=== PATIENT | male | born 1960 | race Caucasian/White ===

== ENCOUNTER 2018-04-28 20:17 | Emergency (ER) | payer MEDICAID ==
[~2018-04-28] VITALS: Ht 165.1 cm; Wt 103.0 kg
[2018-04-28 20:27] VITALS: BP 125/78
--- NOTE | 2018-04-28 20:35 | NUR ---
FIRST CONTACT WITH PT. PT BROUGHT BY [employer]. PT HAS SI. DENIES HI. PT'S AOX4. RESPS EVEN AND UNLABORED. BELONGINGS PUT INTO 1 BLACK BAG AND PUT INTO LOCKER. ROOM SECURE.
[2018-04-28 21:07] LABS: BASOPHILS # (AUTO) 0.03 x10^3/uL (0-0.1); BASOPHILS % (AUTO) 0 % (0-1); EOSINOPHILS # (AUTO) 0.43 x10^3/uL (0-0.4); EOSINOPHILS % (AUTO) 4 % (1-7); LYMPHOCYTES # (AUTO) 1.33 x10^3/uL (1-3.4); LYMPHOCYTES % (AUTO) 14 % (22-44); MD NO; MEAN CORPUSCULAR HEMOGLOBIN 31.7 pg (27.5-34.5); MEAN CORPUSCULAR HGB CONC 33.8 g/dL (33.2-36.2); MEAN CORPUSCULAR VOLUME 93.8 fL (81-97); MEAN PLATELET VOLUME 8.6 fL (7.4-10.4); MONOCYTES # (AUTO) 0.96 x10^3/uL (0.2-0.8); MONOCYTES % (AUTO) 10 % (2-9); NEUTROPHILS # (AUTO) 6.93 x10^3/uL (1.8-6.8); NEUTROPHILS % (AUTO) 72 % (42-75); PLATELET COUNT 296 x10^3/uL (130-400); RED BLOOD COUNT 4.92 x10^6/uL (4.38-5.82); RED CELL DISTRIBUTION WIDTH 14.4 % (9.4-14.8)
--- NOTE | 2018-04-28 21:18 | NUR ---
ekg done by this rn.
[2018-04-28 21:19] LABS: ALANINE AMINOTRANSFERASE 26 U/L (12-78); ALBUMIN 3.2 g/dL (3.4-5.0); ANION GAP 3 mmol/L (5-15); CALCIUM 8.5 mg/dL (8.5-10.1); CHLORIDE 112 mmol/L (98-107); CREATININE 0.66 mg/dL (0.7-1.3); INTERNATIONAL NORMALIZED RATIO 0.97 (0.93-1.1); PROTHROMBIN TIME 10.3 Seconds (9.6-11.5)
[2018-04-28 21:21] LABS: ALKALINE PHOSPHATASE 83 U/L (45-117); BILIRUBIN,TOTAL 0.4 mg/dL (0.2-1.0); TOTAL PROTEIN 7.2 g/dL (6.4-8.2)
[2018-04-28 21:32] LABS: SALICYLATE LEVEL 3.6 mg/dL (2.8-20.0)
[2018-04-28 21:35] LABS: ACETAMINOPHEN < 2 mcg/mL (10-30)
--- NOTE | 2018-04-28 21:37 | NUR ---
PT RESTING IN GURNEY. ROOM REMAINS SECURE. PT'S AOX4. RESPS EVEN AND UNLABORED. PT DENIES ANY NEEDS AND CONCERNS AT THIS TIME.
--- NOTE | 2018-04-28 22:29 | NUR ---
REPORT GIVEN TO HUMPHREY CURIEL.
--- NOTE | 2018-04-28 22:40 | NUR ---
UA COLLECTED AND TO LAB
[2018-04-28 23:15] LABS: AMPHETAMINE SCREEN, URINE Negative (Negative); BARBITURATE SCREEN, URINE Negative (Negative); BENZODIAZEPINE SCREEN, URINE Negative (Negative); CANNABINOID SCREEN, URINE Negative (Negative); COCAINE SCREEN, URINE Negative (Negative); METHADONE SCREEN, URINE Negative (Negative); OPIATE SCREEN, URINE Negative (Negative)
--- NOTE | 2018-04-28 23:15 | NUR ---
ATTEMPTED TO ASK PT QUESTIONS ABOUT SI, PT REFUSED TO ANSWER YES OR NO IF HE WAS SI
--- NOTE | 2018-04-28 23:37 | NUR ---
TELEPSYCH INITIATED. 25315 BOT PLACED AT BS.
--- NOTE | 2018-04-29 | NUR ---
TELEPSYCH IN PROGRESS, PT NOT ANSWERING QUESTIONS
--- NOTE | 2018-04-29 00:48 | NUR ---
PT AGITATED THAT HE IS GETTING DISCHARGED, STATING "I DON'T HAVE ANYWHERE TO GO". PT WAS NOT COOPERATIVE WITH TELEPSYCH CONSULT. THIS RN HAD TO GO IN AND ENCOURAGE THE PT TO SPEAK WITH THE DOCTOR. PT WAS PROVIDED WITH LARGE BAGS OF BELONGINGS, PT UPSET STATING "THIS PLACE IS A JOKE, I JUST TALK TO A DOCTOR ON A SCREEN. I WANT TO TALK TO SOMEONE ELSE".
--- NOTE | 2018-04-29 01:29 | NUR ---
TASK RN: AFTER MUCH ENCOURAGEMENT, PT AMBULATED STEADILY TO DC WITH RN USING OWN WALKER. TAXI VOUCHER FOR SAFE TRANSPORT TO ADDRESS PROVIDED.
== END 2018-04-29 01:31 | disposition home or self-care (01) ==
LOC: ED 23:26
DX: F32.9 Major depressive disorder, single episode, unspecified (principal); R60.0 Localized edema; G89.29 Other chronic pain; Z72.9 Problem related to lifestyle, unspecified; M19.90 Unspecified osteoarthritis, unspecified site
CPT/HCPCS: 36415; 80053; 80307; 80329; 85025; 85610; 85730; 93005; 93970; 99284; G0480

== ENCOUNTER 2019-09-13 00:46 | Emergency (ER) | payer MEDICAID ==
[~2019-09-13] VITALS: Ht 180.3 cm; Wt 93.0 kg
[2019-09-13] MEDS ORDERED: ONDANSETRON 2MG/ML, 2ML ONE (01:12)
[2019-09-13] MEDS ORDERED: MORPHINE SULFATE 4 MG/ML, 1ML ONE ×2 (01:12→02:43)
[2019-09-13] MEDS: MORPHINE SULFATE 4 MG/ML, 1ML IVPush PRN ×2 (01:15→02:45)
[2019-09-13 01:22] LABS: BASOPHILS # (AUTO) 0.04 x10^3/uL (0-0.1); BASOPHILS % (AUTO) 0 % (0-1); EOSINOPHILS # (AUTO) 0.39 x10^3/uL (0-0.4); EOSINOPHILS % (AUTO) 3 % (1-7); LYMPHOCYTES # (AUTO) 1.57 x10^3/uL (1-3.4); LYMPHOCYTES % (AUTO) 11 % (22-44); MD NO; MEAN CORPUSCULAR HEMOGLOBIN 30.8 pg (27.5-34.5); MEAN CORPUSCULAR HGB CONC 33.4 g/dL (33.2-36.2); MEAN CORPUSCULAR VOLUME 92.4 fL (81-97); MEAN PLATELET VOLUME 8.7 fL (7.4-10.4); MONOCYTES # (AUTO) 1.24 x10^3/uL (0.2-0.8); MONOCYTES % (AUTO) 8 % (2-9); NEUTROPHILS # (AUTO) 11.44 x10^3/uL (1.8-6.8); NEUTROPHILS % (AUTO) 78 % (42-75); PLATELET COUNT 291 x10^3/uL (130-400); RED BLOOD COUNT 4.72 x10^6/uL (4.38-5.82); RED CELL DISTRIBUTION WIDTH 14.3 % (9.4-14.8)
[2019-09-13] MEDS ORDERED: ONDANSETRON 2MG/ML, 2ML IVPush ONE (01:30)
[2019-09-13] MEDS ORDERED: SODIUM CHLORIDE 0.9% 1,000ML IVBOLUS ONE (01:30)
[2019-09-13] MEDS ORDERED: SODIUM CHLORIDE FLUSH 10ML SYR IVF ONE (01:30)
[2019-09-13 01:35] LABS: ALANINE AMINOTRANSFERASE 40 U/L (12-78); ALBUMIN 3.8 g/dL (3.4-5.0); ANION GAP 6 mmol/L (5-15); CHLORIDE 114 mmol/L (98-107); CREATININE 1.27 mg/dL (0.7-1.3)
[2019-09-13 01:37] LABS: ALKALINE PHOSPHATASE 114 U/L (45-117); BILIRUBIN,TOTAL 0.5 mg/dL (0.2-1.0); TOTAL PROTEIN 8.1 g/dL (6.4-8.2)
--- NOTE | 2019-09-13 01:52 | NUR ---
THIS PT WAS BIB [facility] FOR ABD PAIN, LOCATED SUPRAPUBICALLY. PT HAS INDWELLING URINARY CATHETER. PT IS A POOR HISTORIAN, PT STATES CATHETER WAS PLACED 1 YEAR AGO, WHILE HE WAS IN THE HOSPITAL BUT PT WILL NOT SPECIFY. STATES HE'S A PT AT [facility] BUT IS UNSURE WHO IS MD IS. PT SAID HE WAS SEEN BY [facility] A COUPLE DAYS AGO WHEN HIS PAIN STARTED, AND RECEIVED ABX OF WHICH HE TOOK ONE TODAY. PT STATES HIS SANTOS WAS NOT CHANGED THERE, BUT THAT IT WAS CHANGED AT [facility]OX 8 DAYS AGO.
[2019-09-13] MEDS ORDERED: LIDOCAINE GEL 2%, 5ML TP ONE (02:30)
[2019-09-13] MEDS ORDERED: MORPHINE SULFATE 4 MG/ML, 1ML IVPush PRN (02:30)
--- NOTE | 2019-09-13 03:09 | NUR ---
PT SITTING IN BED, IN POSITION OF COMFORT. PT STATES "WHATEVER" IN RESPONSE TO THIS RN UPDATING HIM ON POC.
--- NOTE | 2019-09-13 03:24 | NUR ---
ALL NEEDS MET AT THIS TIME. PT DENIES WANTING BELONGINGS MOVED CLOSER, PT EDUCATED TO USE CALL LIGHT, CALL LIGHT IN REACH. PT GIVEN WATER AT REQUEST AND OKAY OF ERP.
[2019-09-13 03:39] LABS: MICROSCOPIC INDICATED
--- NOTE | 2019-09-13 03:51 | NUR ---
ERP BACK TO BEDSIDE TO DISCUSS POC.
[2019-09-13 04:07] VITALS: BP 108/62
--- NOTE | 2019-09-13 04:21 | NUR ---
PT ABLE TO GET SELF DRESSED FOR D/C. PT GIVEN SANTOS LEG BAG.
== END 2019-09-13 04:28 | disposition home or self-care (01) ==
LOC: ED 04:17
DX: N39.0 Urinary tract infection, site not specified (principal); R31.9 Hematuria, unspecified; R10.30 Lower abdominal pain, unspecified
CPT/HCPCS: 36415; 51702; 80053; 81001; 85025; 87077; 87086; 96374; 96375; 96376; 99284; J2270; J2405; J7030

== ENCOUNTER 2019-09-30 11:37 | Emergency (ER) | payer MEDICAID ==
[~2019-09-30] VITALS: Ht 172.7 cm; Wt 90.0 kg
[2019-09-30] MEDS ORDERED: PHENAZOPYRIDINE 200 MG TABLET PO ONE (12:00)
[2019-09-30] MEDS ORDERED: PHENAZOPYRIDINE 200 MG TABLET ONE (12:09)
[2019-09-30] MEDS ORDERED: HYDROmorphone 1 MG/ML, 1ML INJ ONE (12:11)
--- NOTE | 2019-09-30 12:17 | NUR ---
C/O pain. Patient very anxious. MD aware. Patient medicated per order.
[2019-09-30] MEDS ORDERED: HYDROmorphone 1 MG/ML, 1ML INJ IM ONE (12:30)
[2019-09-30 12:45] LABS: BASOPHILS # (AUTO) 0.03 x10^3/uL (0-0.1); BASOPHILS % (AUTO) 0 % (0-1); EOSINOPHILS # (AUTO) 0.18 x10^3/uL (0-0.4); EOSINOPHILS % (AUTO) 1 % (1-7); LYMPHOCYTES # (AUTO) 1.04 x10^3/uL (1-3.4); LYMPHOCYTES % (AUTO) 7 % (22-44); MD NO; MEAN CORPUSCULAR HEMOGLOBIN 31.1 pg (27.5-34.5); MEAN CORPUSCULAR HGB CONC 33.3 g/dL (33.2-36.2); MEAN CORPUSCULAR VOLUME 93.3 fL (81-97); MEAN PLATELET VOLUME 8.9 fL (7.4-10.4); MONOCYTES # (AUTO) 0.78 x10^3/uL (0.2-0.8); MONOCYTES % (AUTO) 6 % (2-9); NEUTROPHILS # (AUTO) 12.09 x10^3/uL (1.8-6.8); NEUTROPHILS % (AUTO) 86 % (42-75); PLATELET COUNT 285 x10^3/uL (130-400); RED BLOOD COUNT 4.81 x10^6/uL (4.38-5.82); RED CELL DISTRIBUTION WIDTH 14.3 % (9.4-14.8)
[2019-09-30 12:50] LABS: ALBUMIN 3.8 g/dL (3.4-5.0); ANION GAP 6 mmol/L (5-15); CALCIUM 9.1 mg/dL (8.5-10.1); CHLORIDE 109 mmol/L (98-107); CREATININE 0.83 mg/dL (0.7-1.3)
[2019-09-30 13:01] LABS: MICROSCOPIC AUTO
--- NOTE | 2019-09-30 13:21 | NUR ---
Reports decreased pain. No needs.
--- NOTE | 2019-09-30 14:34 | NUR ---
Patient/Caregiver given discharge instructions and they have confirmed that they understand the instructions. Patient ambulatory with steady gait.
[2019-09-30 14:35] VITALS: BP 129/71
== END 2019-09-30 14:35 | disposition home or self-care (01) ==
LOC: ED 12:29
DX: R10.9 Unspecified abdominal pain (principal); R33.9 Retention of urine, unspecified; M19.90 Unspecified osteoarthritis, unspecified site; Z87.891 Personal history of nicotine dependence
CPT/HCPCS: 36415; 51702; 80048; 81001; 82040; 85025; 87086; 96372; 99284; J1170

== ENCOUNTER 2019-10-02 06:04 | Emergency (ER) | payer MEDICAID ==
[~2019-10-02] VITALS: Ht 172.7 cm; Wt 92.0 kg
[2019-10-02 06:07] VITALS: BP 119/64
--- NOTE | 2019-10-02 06:30 | NUR ---
RN CHANGED SANTOS FROM A 16FR TO A 20FR, PATIENT TOLERATED IT WELL, NO DRAINAGE AROUND THE SANTOS AT THIS TIME, WILL CONTINUE TO MONITOR
--- NOTE | 2019-10-02 07:07 | NUR ---
PATIENT TOLERATED Alex SANTOS/Jorge L PAPERWORK GIVEN TO PATIENT WITH VERBAL UNDERSTANDING
== END 2019-10-02 08:15 | disposition home or self-care (01) ==
LOC: ED 06:46
DX: T83.038A Leakage of other urinary catheter, initial encounter (principal); R33.9 Retention of urine, unspecified; F17.290 Nicotine dependence, other tobacco product, uncomplicated; Y84.6 Urinary catheterization as the cause of abnormal reaction of the patient, or of later complication, without mention of misadventure at the time of the procedure
CPT/HCPCS: 99283

== ENCOUNTER 2019-10-17 09:42 | Emergency (ER) | payer MEDICAID ==
[~2019-10-17] VITALS: Ht 172.7 cm; Wt 94.0 kg
[2019-10-17 10:22] LABS: BASOPHILS # (AUTO) 0.03 x10^3/uL (0-0.1); BASOPHILS % (AUTO) 0 % (0-1); EOSINOPHILS # (AUTO) 0.33 x10^3/uL (0-0.4); EOSINOPHILS % (AUTO) 5 % (1-7); LYMPHOCYTES # (AUTO) 1.61 x10^3/uL (1-3.4); LYMPHOCYTES % (AUTO) 22 % (22-44); MD NO; MEAN CORPUSCULAR HEMOGLOBIN 30.4 pg (27.5-34.5); MEAN CORPUSCULAR HGB CONC 32.6 g/dL (33.2-36.2); MEAN CORPUSCULAR VOLUME 93.3 fL (81-97); MEAN PLATELET VOLUME 8.3 fL (7.4-10.4); MONOCYTES % (AUTO) 10 % (2-9); NEUTROPHILS # (AUTO) 4.55 x10^3/uL (1.8-6.8); NEUTROPHILS % (AUTO) 63 % (42-75); PLATELET COUNT 277 x10^3/uL (130-400); RED BLOOD COUNT 4.78 x10^6/uL (4.38-5.82); RED CELL DISTRIBUTION WIDTH 14.1 % (9.4-14.8)
[2019-10-17 10:29] LABS: MICROSCOPIC INDICATED
--- NOTE | 2019-10-17 10:30 | NUR ---
PT BIB EMS FOR BLADDER PAIN. PT HAS SANTOS, INSERTED ON 10/01. CO DARK URINE. SEES UROLOGIST. DENIES CP, COUGH, SOB. CO OF SANTOS LEAKING
[2019-10-17 10:42] LABS: ALANINE AMINOTRANSFERASE 17 U/L (12-78); ALBUMIN 3.7 g/dL (3.4-5.0); BILIRUBIN, DIRECT 0.2 mg/dL (0.1-0.2); CALCIUM 9.1 mg/dL (8.5-10.1); CHLORIDE 112 mmol/L (98-107); CREATININE 0.76 mg/dL (0.7-1.3)
[2019-10-17 10:47] LABS: ALKALINE PHOSPHATASE 91 U/L (45-117); BILIRUBIN,INDIRECT 0.6 mg/dL (0.0-2.0); BILIRUBIN,TOTAL 0.8 mg/dL (0.2-1.0); TOTAL PROTEIN 7.4 g/dL (6.4-8.2)
[2019-10-17 10:48] LABS: ANION GAP 5 mmol/L (5-15)
[2019-10-17 10:57] VITALS: BP 111/71
--- NOTE | 2019-10-17 10:57 | NUR ---
TASK RN: PT RESTING ON GURNEY, DENIES PAIN. VSS. FALL PRECAUTIONS IN PLACE, PLACED CALL LIGHT WITHIN REACH.
--- NOTE | 2019-10-17 11:39 | NUR ---
pt co guillen leaking. Md willingham ok to change out guillen.
--- NOTE | 2019-10-17 12:05 | NUR ---
SANTOS PLACED WITHOUT DIFFICULTY.
== END 2019-10-17 12:08 | disposition home or self-care (01) ==
LOC: MERGE 09:42 → ED 10:36
DX: N30.01 Acute cystitis with hematuria (principal); F17.290 Nicotine dependence, other tobacco product, uncomplicated
CPT/HCPCS: 36415; 80048; 80076; 81001; 82040; 85025; 87086; 99283

== ENCOUNTER 2019-11-05 23:32 | Emergency (ER) | payer MEDICAID ==
[~2019-11-05] VITALS: Ht 170.2 cm; Wt 91.0 kg
--- NOTE | 2019-11-05 23:47 | NUR ---
SANTOS LAST PLACED HERE 10/17/19
[2019-11-06] MEDS ORDERED: IBUPROFEN 600 MG TABLET ONE (01:27)
[2019-11-06] MEDS ORDERED: ONDANSETRON ODT 4 MG ONE (01:27)
[2019-11-06] MEDS ORDERED: HYDROcodone/APAP 5/325 TABLET ONE (01:28)
[2019-11-06] MEDS ORDERED: ONDANSETRON ODT 4 MG PO ONE (01:30)
[2019-11-06] MEDS ORDERED: HYDROcodone/APAP 5/325 TABLET PO ONE (01:30)
[2019-11-06] MEDS ORDERED: IBUPROFEN 600 MG TABLET PO ONE (01:30)
[2019-11-06 01:49] LABS: BASOPHILS # (AUTO) 0.03 x10^3/uL (0-0.1); BASOPHILS % (AUTO) 0 % (0-1); EOSINOPHILS # (AUTO) 0.05 x10^3/uL (0-0.4); EOSINOPHILS % (AUTO) 0 % (1-7); LYMPHOCYTES # (AUTO) 1.56 x10^3/uL (1-3.4); LYMPHOCYTES % (AUTO) 11 % (22-44); MD NO; MEAN CORPUSCULAR HGB CONC 33.3 g/dL (33.2-36.2); MONOCYTES # (AUTO) 0.91 x10^3/uL (0.2-0.8); MONOCYTES % (AUTO) 6 % (2-9); NEUTROPHILS # (AUTO) 12.17 x10^3/uL (1.8-6.8); NEUTROPHILS % (AUTO) 83 % (42-75); PLATELET COUNT 266 x10^3/uL (130-400); RED BLOOD COUNT 4.84 x10^6/uL (4.38-5.82); RED CELL DISTRIBUTION WIDTH 13.8 % (9.4-14.8)
[2019-11-06 01:56] LABS: ALBUMIN 3.9 g/dL (3.4-5.0); ANION GAP 2 mmol/L (5-15); CALCIUM 9.2 mg/dL (8.5-10.1); CHLORIDE 112 mmol/L (98-107); CREATININE 0.97 mg/dL (0.7-1.3)
--- NOTE | 2019-11-06 02:12 | NUR ---
LATE ENTRY DUE TO PATIENT CARE: THIS IS A 59 YO MALE COMING IN FOR BILATERAL PUBIC PAIN WITH NAUSEA, PATIENT APPEARS IN DISTRESS FROM PAIN, HAS SANTOS IN PLACE THAT WAS PLACED HERE 10/17/2019. CLOUDY, FOUL SMELLING URINE WITH SEDIMENT NOTED IN SANTOS BAG. PER MD ORDERS PREVIOUS SANTOS REMOVED. NEW SANTOS PLACED. MONITORING IN PLACE. VSS, NADN AT THIS TIME AFTER MEDICATIONS WERE ADMINISTERED. PATIENT TOELRATED SANTOS CHANGE WELL. UA COLLECTED AND SENT TO LAB. CALL LIGHT IN REACH. DENIES NEEDS
[2019-11-06 02:44] LABS: MICROSCOPIC INDICATED
[2019-11-06 02:45] VITALS: BP 110/60
--- NOTE | 2019-11-06 02:56 | NUR ---
REPORT GIVEN TO VEENA WONG. PLAN OF CARE DISCUSSED
[2019-11-06] MEDS ORDERED: CIPROFLOXACIN 500 MG TABLET PO ONE (03:00)
[2019-11-06] MEDS ORDERED: CIPROFLOXACIN 500 MG TABLET ONE (03:07)
--- NOTE | 2019-11-06 03:49 | NUR ---
Pt provided with and assisted in attaching new leg bag for guillen.
== END 2019-11-06 03:51 | disposition home or self-care (01) ==
LOC: ED 11-06 01:24
DX: N30.01 Acute cystitis with hematuria (principal); R10.30 Lower abdominal pain, unspecified; Z87.891 Personal history of nicotine dependence
CPT/HCPCS: 36415; 51702; 80048; 81001; 82040; 85025; 87086; 87106; 87186; 99284; Q0162